=== PATIENT | male | born 1950 | race Caucasian/White ===

== ENCOUNTER 2019-03-11 18:39 | Outpatient (REF) | payer MEDICARE, BC, SELFPAY ==
[2019-03-11 19:23] LABS: ALT 34 U/L (12-78); Anion Gap 9.8 mmol/L (3-11); BUN 18 mg/dL (7-18); CO2 28.2 mmol/L (21.0-32.0); CREATININE 1.08 mg/dL (0.70-1.30); Calcium 9.4 mg/dL (8.5-10.1); Chloride 98 mmol/L (98-107); Glucose 97 mg/dL (70-100); Potassium 4.1 mmol/L (3.5-5.1); Sodium 136 mmol/L (136-145)
[2019-03-11 19:48] LABS: LDL CHOLESTEROL 63 mg/dL (<100)
[2019-03-15 10:52] LABS: PSA, Diagnostic <0.1 ng/ml (0-4.5)
== END 2019-03-11 18:59 ==
LOC: NCHCN 18:39
PROVIDERS: PCP Internal Medicine; Visit Provider Internal Medicine
DX: I10 Essential (primary) hypertension (principal); E78.5 Hyperlipidemia, unspecified; C61 Malignant neoplasm of prostate
CPT/HCPCS: 80048; 83721; 84153; 84460

== ENCOUNTER 2020-03-30 12:38 | Outpatient (REF) | payer MEDICARE, BC, SELFPAY ==
[2020-03-30 19:50] LABS: ALT 34 U/L (16-63); Anion Gap 6.1 mmol/L (3-11); BUN 17 mg/dL (7-18); CO2 29.9 mmol/L (21.0-32.0); CREATININE 1.01 mg/dL (0.70-1.30); Calcium 9.5 mg/dL (8.5-10.1); Calculated LDL 75 mg/dL (<100); Chloride 98 mmol/L (98-107); Cholesterol 138 mg/dL (<200); Glucose 93 mg/dL (74-106); HDL Cholesterol 50 mg/dL (40-60); Potassium 3.9 mmol/L (3.5-5.1); Sodium 134 mmol/L (136-145); Triglyceride 69 mg/dL (<150)
[2020-03-30 20:07] LABS: Creatine Kinase 157 U/L (39-308)
[2020-04-03 10:36] LABS: PSA, Diagnostic <0.1 ng/mL (0.0-6.5)
== END 2020-03-30 12:58 ==
LOC: NCHCN 12:38
PROVIDERS: PCP Internal Medicine; Visit Provider Internal Medicine
DX: I10 Essential (primary) hypertension (principal); M77.01 Medial epicondylitis, right elbow; E78.5 Hyperlipidemia, unspecified; C61 Malignant neoplasm of prostate
CPT/HCPCS: 80048; 80061; 82550; 84153; 84460

== ENCOUNTER 2021-04-09 18:37 | Outpatient (REF) | payer MEDICARE, BC, SELFPAY ==
[2021-04-09 20:03] LABS: ALT 36 U/L (16-63); Anion Gap 10.1 mmol/L (3-11); BUN 16 mg/dL (7-18); CO2 28.9 mmol/L (21.0-32.0); Calcium 9.3 mg/dL (8.5-10.1); Calculated LDL 75 mg/dL (<100); Chloride 98 mmol/L (98-107); Cholesterol 140 mg/dL (<200); Glucose 89 mg/dL (74-106); HDL Cholesterol 56 mg/dL (40-60); Potassium 3.7 mmol/L (3.5-5.1); Sodium 137 mmol/L (136-145); Triglyceride 47 mg/dL (<150)
[2021-04-10 19:03] LABS: PSA, Diagnostic 0.1 ng/mL (0.0-6.5)
== END 2021-04-09 18:38 | disposition home or self-care (01) ==
LOC: NCHCN 18:37
PROVIDERS: PCP Internal Medicine; Visit Provider Internal Medicine
DX: Z00.00 Encounter for general adult medical examination without abnormal findings (principal); I10 Essential (primary) hypertension; C61 Malignant neoplasm of prostate; E78.5 Hyperlipidemia, unspecified
CPT/HCPCS: 80048; 80061; 84153; 84460

== ENCOUNTER 2022-04-12 19:36 | Outpatient (REF) | payer MEDICARE, BC, SELFPAY ==
[2022-04-12 19:00] LABS: ALT 37 U/L (16-63); Anion Gap 7.4 mmol/L (3-11); BUN 26 mg/dL (7-18); CO2 29.6 mmol/L (21.0-32.0); Calcium 9.4 mg/dL (8.5-10.1); Calculated LDL 85 mg/dL (<100); Chloride 100 mmol/L (98-107); Cholesterol 149 mg/dL (<200); Glucose 101 mg/dL (74-106); HDL Cholesterol 46 mg/dL (40-60); Potassium 3.5 mmol/L (3.5-5.1); Sodium 137 mmol/L (136-145); Triglyceride 94 mg/dL (<150)
[2022-04-15 09:49] LABS: PSA, Diagnostic <0.1 ng/mL (<=6.5)
== END 2022-04-12 19:37 | disposition home or self-care (01) ==
LOC: NCHCN 19:36
PROVIDERS: PCP Internal Medicine; Visit Provider Internal Medicine
DX: I10 Essential (primary) hypertension (principal); E78.5 Hyperlipidemia, unspecified; C61 Malignant neoplasm of prostate
CPT/HCPCS: 80048; 80061; 84153; 84460

== ENCOUNTER 2024-05-05 12:51 | Outpatient (REF) | payer MEDICARE, BC, SELFPAY ==
[2024-05-05 20:29] LABS: ALT 35 U/L (16-63); AST 24 U/L (15-37); Albumin 4.3 g/dL (3.4-5.0); Alkaline Phosphatase 66 U/L (46-116); Anion Gap 4.2 mmol/L (3-11); BUN 17 mg/dL (7-18); Bilirubin, Total 0.75 mg/dL (0.2-1.0); CO2 33.8 mmol/L (21.0-32.0); Calcium 9.8 mg/dL (8.5-10.1); Calculated LDL 82 mg/dL (<100); Chloride 98 mmol/L (98-107); Cholesterol 151 mg/dL (<200); Creatine Kinase 144 U/L (39-308); Estimated GFR 78.98 (mL/min/1.73m2); Glucose 90 mg/dL (74-106); HDL Cholesterol 51 mg/dL (40-60); Potassium 3.8 mmol/L (3.5-5.1); Sodium 136 mmol/L (136-145); Total Protein 7.8 g/dL (6.4-8.2); Triglyceride 91 mg/dL (<150)
[2024-05-06 18:55] LABS: PSA, Screening <0.1 ng/mL (<=6.5)
[2024-05-07 09:33] LABS: Hepatitis C Ab w Rflx HCV PCR Negative (Negative)
== END 2024-05-05 12:52 | disposition home or self-care (01) ==
LOC: NCHCN 12:51
PROVIDERS: PCP Internal Medicine; Visit Provider Internal Medicine
DX: I10 Essential (primary) hypertension (principal); C61 Malignant neoplasm of prostate; Z12.5 Encounter for screening for malignant neoplasm of prostate
CPT/HCPCS: 80053; 80061; 82550; 84153; 86803

== ENCOUNTER 2025-05-09 16:19 | Outpatient (REF) | payer MEDICARE, BC, SELFPAY ==
[2025-05-09 19:37] LABS: Anion Gap 10.6 mmol/L (3-11); BUN 31 mg/dL (7-18); CO2 28.4 mmol/L (21.0-32.0); Calcium 9.2 mg/dL (8.5-10.1); Calculated LDL 85 mg/dL (<100); Chloride 102 mmol/L (98-107); Cholesterol 143 mg/dL (<200); Estimated GFR 78.49 (mL/min/1.73m2); Glucose 95 mg/dL (74-106); HDL Cholesterol 41 mg/dL (>or=40); Potassium 4.1 mmol/L (3.5-5.1); Sodium 141 mmol/L (136-145); Triglyceride 88 mg/dL (<150)
[2025-05-10 19:25] LABS: PSA, Diagnostic 0.1 ng/mL (<=6.5)
== END 2025-05-09 16:20 | disposition home or self-care (01) ==
LOC: NCHCN 16:19
PROVIDERS: PCP Internal Medicine; Visit Provider Internal Medicine
DX: C61 Malignant neoplasm of prostate (principal); I10 Essential (primary) hypertension
CPT/HCPCS: 80048; 80061; 84153